=== PATIENT | female | born 1995 | race Hispanic/Latino ===

== ENCOUNTER 2019-01-27 13:17 | Outpatient (CLI) | payer OTHER ==
--- NOTE | 2019-01-27 14:38 | Cat Scan Report ---
CT ABDOMEN AND PELVIS WITHOUT CONTRAST HISTORY: R10.9 ACUTE ABDOMINAL PAIN. Pain during urination for 3 days. Constipation. COMPARISON: None similar at this institution. TECHNIQUE: CT images of the abdomen and pelvis were obtained without administration of intravenous co ntrast. All CT scans at this location are performed using CT dose reduction for ALARA by means of au tomated exposure control. FINDINGS: LUNG BASES: Mild nonspecific distal esophageal prominence/thickening, not excluded for hiatal hernia and/or gastroesophageal reflux, amongst others. ABDOMEN: Please note that sensitivity to detect small visceral lesions is limited due to the absence of intravenous contrast. Left hepatic lobe touches the spleen in the left upper quadrant. Right hepat ic lobe 16.5 cm in midclavicular length. Tiny nonobstructing bilateral renal calculi also noted, at l east 2 in number on the right and at least 4 on the left with the largest calculus left interpolar an d approximately 3 mm, axial series 4, image 28. Otherwise grossly unremarkable unenhanced liver, sple en, gallbladder, pancreas, adrenals, aorta, IVC and kidneys. Possible retroaortic left renal vein. No ascites or size significant adenopathy. Nonopacified GI tract evaluation limited, though grossly non obstructive. Unremarkable terminal ileum. Stool noted throughout the colon, most rectosigmoid and liana ng the ascending colon/possible constipation. PELVIS: Uterus grossly unremarkable, situated in the left hemipelvis. Minimal, likely physiologic pel ligia free fluid. Adnexa/ovaries and nonopacified urinary bladder grossly within normal limits. Tiny le ft hemipelvic phleboliths. Slight lumbar levoscoliosis apex about L2. IMPRESSION: Tiny nonobstructing bilateral renal calculi, possible constipation and few other incident al findings, as above. Please correlate. Signer Name: Alexia Perry Signed: 01/27/2019 2:34 PM Workstation Name: [id number]
== END 2019-01-27 13:18 | disposition home or self-care (01) ==
LOC: CT 13:17
PROVIDERS: ATTEND Family Medicine Adult Medicine
DX: R10.9 Unspecified abdominal pain (principal)
CPT/HCPCS: 74176